=== PATIENT | male | born 1985 | race Caucasian/White ===

== ENCOUNTER 2016-08-12 21:18 | Emergency (ER) | payer SELFPAY ==
[~2016-08-12] VITALS: Ht 175.3 cm; Wt 63.5 kg
[2016-08-12 21:24] VITALS: BP 123/75
[2016-08-12] MEDS ORDERED: IBUPROFEN 400 MG TABLET ONE (22:11)
[2016-08-12] MEDS ORDERED: ONDANSETRON 4 MG TAB.RAPDIS ONE (22:11)
[2016-08-12] MEDS ORDERED: ONDANSETRON 4 MG TAB.RAPDIS SL ONE (22:30)
[2016-08-12] MEDS ORDERED: IBUPROFEN 400 MG TABLET PO ONE (22:30)
== END 2016-08-12 22:52 | disposition home or self-care (01) ==
LOC: ER 21:22
DX: S09.90XA Unspecified injury of head, initial encounter (principal); R51 Headache; Z91.030 Bee allergy status; W22.8XXA Striking against or struck by other objects, initial encounter; Y93.51 Activity, roller skating (inline) and skateboarding; Y92.89 Other specified places as the place of occurrence of the external cause; Y99.9 Unspecified external cause status
CPT/HCPCS: 70450; 99284; A4606; Q0162; Z7610